=== PATIENT | female | born 1960 | race Caucasian/White ===

== ENCOUNTER 2022-03-27 07:25 | Day surgery (SDC) | payer OTHER ==
[~2022-03-27] VITALS: Ht 160 cm; Wt 81.6 kg
[2022-03-27] MEDS ORDERED: MEPERIDINE 100 MG INJ. 100 MG/ML VIAL ONE (08:21)
[2022-03-27] MEDS: MIDAZOLAM HCL 5 MG/5 ML VIAL ONE ×2 (09:55→09:58)
[2022-03-27 14:52] VITALS: BP_SYST 151
== END 2022-03-27 11:30 | disposition home or self-care (01) ==
LOC: SDS 07:25 → SMU 07:26 → SDS 11:30
PROVIDERS: ATTEND Internal Medicine Gastroenterology
DX: R19.5 Other fecal abnormalities (principal); D12.7 Benign neoplasm of rectosigmoid junction; K57.30 Diverticulosis of large intestine without perforation or abscess without bleeding; K64.8 Other hemorrhoids; I10 Essential (primary) hypertension; E78.5 Hyperlipidemia, unspecified; Z80.0 Family history of malignant neoplasm of digestive organs; Z79.899 Other long term (current) drug therapy; Z20.822 Contact with and (suspected) exposure to COVID-19
CPT/HCPCS: 36415; 45380; 88305; 99152; 99153; U0003; G0378; J2250; J2175

== ENCOUNTER 2022-05-12 16:46 | Emergency (ER) | payer OTHER ==
[~2022-05-12] VITALS: Ht 160 cm; Wt 78.9 kg
[2022-05-12 16:54] VITALS: BP_SYST 180
[2022-05-12] MEDS ORDERED: AMLO5TAB92 PO (17:44)
[2022-05-12 18:07] VITALS: BP_SYST 180
== END 2022-05-12 18:07 | disposition home or self-care (01) ==
LOC: SED 16:46
DX: I10 Essential (primary) hypertension (principal); G43.909 Migraine, unspecified, not intractable, without status migrainosus; Z79.899 Other long term (current) drug therapy
CPT/HCPCS: 99283